=== PATIENT | male | born 1940 | race Caucasian/White ===

== ENCOUNTER → 2019-12-20 | Outpatient (CLI) | payer MEDICARE ==
[~2019-12-20] MED LIST: ACET325C6 PO; ALPR0.5T6 PO; APIX5TAB PO; ATOR40TA78 PO; CHOL2000 PO; CLON-364 PO; CYAN2000 PO; DRON400T PO; DUTA1CPM PO; LOSA50TA14 PO; SOTA80TA PO; TRAM50TA2 PO; VALS320T2 PO; [UNRECOGNIZED DRUG - OTHER] PO
[2019-12-20 15:35] LABS: BASOPHILS # (AUTO) 0.03 x10^3/uL (0-0.1); BASOPHILS % (AUTO) 0 % (0-1); EOSINOPHILS # (AUTO) 0.24 x10^3/uL (0-0.4); EOSINOPHILS % (AUTO) 3 % (1-7); LYMPHOCYTES # (AUTO) 1.22 x10^3/uL (1-3.4); LYMPHOCYTES % (AUTO) 15 % (22-44); MD NO; MEAN CORPUSCULAR HEMOGLOBIN 33.3 pg (27.5-34.5); MEAN CORPUSCULAR HGB CONC 34.4 g/dL (33.2-36.2); MEAN CORPUSCULAR VOLUME 96.7 fL (81-97); MEAN PLATELET VOLUME 8.5 fL (7.4-10.4); MONOCYTES # (AUTO) 0.75 x10^3/uL (0.2-0.8); MONOCYTES % (AUTO) 10 % (2-9); NEUTROPHILS # (AUTO) 5.67 x10^3/uL (1.8-6.8); NEUTROPHILS % (AUTO) 72 % (42-75); PLATELET COUNT 216 x10^3/uL (130-400); RED BLOOD COUNT 4.82 x10^6/uL (4.38-5.82); RED CELL DISTRIBUTION WIDTH 13.9 % (9.4-14.8)
[2019-12-20 15:41] LABS: INTERNATIONAL NORMALIZED RATIO 1.01 (0.93-1.1); PROTHROMBIN TIME 10.7 Seconds (9.6-11.5)
[2019-12-20 15:43] LABS: ALANINE AMINOTRANSFERASE 29 U/L (12-78); ALBUMIN 4.4 g/dL (3.4-5.0); ANION GAP 5 mmol/L (5-15); CALCIUM 9.3 mg/dL (8.5-10.1); CHLORIDE 108 mmol/L (98-107); CREATININE 0.86 mg/dL (0.7-1.3)
[2019-12-20 15:45] LABS: ALKALINE PHOSPHATASE 83 U/L (45-117); BILIRUBIN,TOTAL 1.6 mg/dL (0.2-1.0); TOTAL PROTEIN 7.3 g/dL (6.4-8.2)
[2019-12-20 15:48] LABS: MICROSCOPIC AUTO
[2019-12-20 15:50] LABS: CULTURE INDICATED? YES
== END | disposition home or self-care (01) ==
LOC: STAR 14:31
PROVIDERS: ATTEND Neurological Surgery
DX: Z01.811 Encounter for preprocedural respiratory examination (principal); Z01.812 Encounter for preprocedural laboratory examination; Z01.810 Encounter for preprocedural cardiovascular examination; M47.817 Spondylosis without myelopathy or radiculopathy, lumbosacral region; R79.1 Abnormal coagulation profile; R94.31 Abnormal electrocardiogram [ECG] [EKG]; R82.90 Unspecified abnormal findings in urine; R00.1 Bradycardia, unspecified
CPT/HCPCS: 36415; 71046; 72110; 80053; 81001; 85025; 85610; 85730; 87086; 93005

== ENCOUNTER 2019-12-29 15:25 | Observation (INO) | payer MEDICARE ==
[2019-12-29] VITALS (7 sets, daily range): BP systolic 167–224; BP diastolic 69–83
[~2019-12-29] VITALS: Ht 185.4 cm; Wt 92.5 kg
[~2019-12-29 15:25] MED LIST changes: +BACITRACIN 50,000 UNIT ONE; +BUPIVACAINE 0.25% ONE; +BUPIVACAINE/PF-EPI 0.5% 1:200K ONE; +VANCOMYCIN 1,000 MG ONE
[2019-12-29] MEDS ORDERED: FENTANYL PF 250 MCG/5ML ONE (16:26)
[2019-12-29] MEDS ORDERED: ACETAMINOPHEN 500 MG TABLET ONE (16:38)
[2019-12-29] MEDS ORDERED: GABAPENTIN 300 MG CAPSULE ONE (16:38)
[2019-12-29] MEDS ORDERED: hydrALAzine 20 MG/ML, 1ML ONE (18:15)
[2019-12-29] MEDS ORDERED: hydrALAzine 20 MG/ML, 1ML IV ONE ×2 (18:30→19:00)
[2019-12-29 19:12] LABS: BASOPHILS # (AUTO) 0.02 x10^3/uL (0-0.1); BASOPHILS % (AUTO) 0 % (0-1); EOSINOPHILS # (AUTO) 0.26 x10^3/uL (0-0.4); EOSINOPHILS % (AUTO) 4 % (1-7); LYMPHOCYTES # (AUTO) 1.16 x10^3/uL (1-3.4); LYMPHOCYTES % (AUTO) 18 % (22-44); MD NO; MEAN CORPUSCULAR HEMOGLOBIN 32.9 pg (27.5-34.5); MEAN CORPUSCULAR HGB CONC 33.9 g/dL (33.2-36.2); MEAN CORPUSCULAR VOLUME 97.1 fL (81-97); MEAN PLATELET VOLUME 8.2 fL (7.4-10.4); MONOCYTES # (AUTO) 0.67 x10^3/uL (0.2-0.8); MONOCYTES % (AUTO) 10 % (2-9); NEUTROPHILS # (AUTO) 4.37 x10^3/uL (1.8-6.8); NEUTROPHILS % (AUTO) 68 % (42-75); PLATELET COUNT 184 x10^3/uL (130-400); RED CELL DISTRIBUTION WIDTH 13.6 % (9.4-14.8)
[2019-12-29 19:25] LABS: ALANINE AMINOTRANSFERASE 22 U/L (12-78); ALBUMIN 3.6 g/dL (3.4-5.0); ANION GAP 5 mmol/L (5-15); CALCIUM 8.7 mg/dL (8.5-10.1); CHLORIDE 109 mmol/L (98-107); CREATININE 0.63 mg/dL (0.7-1.3)
[2019-12-29 19:29] LABS: ALKALINE PHOSPHATASE 70 U/L (45-117); BILIRUBIN,TOTAL 1.6 mg/dL (0.2-1.0); TOTAL PROTEIN 6.3 g/dL (6.4-8.2); TROPONIN I < 0.015 ng/mL (0.000-0.045)
[2019-12-29] MEDS ORDERED: LIDODERM 5% PATCH TD PRN (20:00)
[2019-12-29] MEDS ORDERED: DOCUSATE 100 MG CAPSULE PO PRN (20:00)
[2019-12-29] MEDS ORDERED: ACET-76 PO (20:21)
[2019-12-29] MEDS ORDERED: ENALAPRILAT 1.25 MG/ML, 1ML ONE (21:17)
[2019-12-29] MEDS: ENALAPRILAT 1.25 MG/ML, 2ML IVPush PRN (21:20)
[2019-12-29] MEDS: APIXABAN 5 MG TABLET PO SCH (21:22)
[2019-12-29] MEDS: ATORVASTATIN 40 MG TABLET PO SCH (21:22)
[2019-12-30] VITALS (9 sets, daily range): BP systolic 140–198; BP diastolic 64–76
[2019-12-30 01:07] LABS: TROPONIN I < 0.015 ng/mL (0.000-0.045)
[2019-12-30 07:47] LABS: TROPONIN I < 0.015 ng/mL (0.000-0.045)
[2019-12-30] MEDS: ACETAMINOPHEN 325 MG TABLET PO SCH (08:48)
[2019-12-30] MEDS: LOSARTAN 50MG TABLET PO SCH (08:49)
[2019-12-30] MEDS: LIDODERM REMOVE PATCH NOTE XX SCH ×2 (08:49→20:10)
[2019-12-30] MEDS: APIXABAN 5 MG TABLET PO SCH ×2 (08:49→20:09)
[2019-12-30] MEDS: hydrALAzine 20 MG/ML, 1ML IVPush PRN ×2 (08:52→20:54)
[2019-12-30] MEDS ORDERED: SOTALOL 80MG TABLET PO SCH (10:30)
[2019-12-30] MEDS ORDERED: POLYETHYLENE GLYCOL 17 GM PACKET PO ONE (10:30)
[2019-12-30] MEDS: AMLODIPINE 5 MG TABLET PO SCH (11:19)
[2019-12-30] MEDS: SOTALOL 80MG TABLET PO SCH ×2 (11:20→20:09)
[2019-12-30] MEDS: DOCUSATE 50 MG/5 ML, 10ML UDC PO PRN ×2 (11:21→20:09)
[2019-12-30] MEDS: ENALAPRILAT 1.25 MG/ML, 2ML IVPush PRN ×2 (15:50→16:17)
[2019-12-30] MEDS: ATORVASTATIN 40 MG TABLET PO SCH (20:08)
[2019-12-31 03:22] VITALS: BP 169/70
[2019-12-31 05:16] LABS: BASOPHILS # (AUTO) 0.02 x10^3/uL (0-0.1); BASOPHILS % (AUTO) 0 % (0-1); EOSINOPHILS # (AUTO) 0.24 x10^3/uL (0-0.4); EOSINOPHILS % (AUTO) 3 % (1-7); LYMPHOCYTES # (AUTO) 1.25 x10^3/uL (1-3.4); LYMPHOCYTES % (AUTO) 16 % (22-44); MD NO; MEAN CORPUSCULAR HGB CONC 33.8 g/dL (33.2-36.2); MEAN CORPUSCULAR VOLUME 97.8 fL (81-97); MEAN PLATELET VOLUME 8.9 fL (7.4-10.4); MONOCYTES # (AUTO) 0.79 x10^3/uL (0.2-0.8); MONOCYTES % (AUTO) 10 % (2-9); NEUTROPHILS # (AUTO) 5.54 x10^3/uL (1.8-6.8); NEUTROPHILS % (AUTO) 71 % (42-75); PLATELET COUNT 182 x10^3/uL (130-400); RED CELL DISTRIBUTION WIDTH 14.2 % (9.4-14.8)
[2019-12-31 05:17] LABS: ALBUMIN 3.4 g/dL (3.4-5.0); ANION GAP 6 mmol/L (5-15); CALCIUM 8.7 mg/dL (8.5-10.1); CHLORIDE 110 mmol/L (98-107)
[2019-12-31 05:21] LABS: ALANINE AMINOTRANSFERASE 20 U/L (12-78); ALKALINE PHOSPHATASE 65 U/L (45-117); BILIRUBIN,TOTAL 1.3 mg/dL (0.2-1.0); CREATININE 0.69 mg/dL (0.7-1.3); TOTAL PROTEIN 6.1 g/dL (6.4-8.2)
[2019-12-31 08:07] VITALS: BP 183/70
[2019-12-31] MEDS ORDERED: HYDROCHLOROTHIAZIDE 25 MG TABLET PO SCH (09:00)
[2019-12-31] MEDS: AMLODIPINE 5 MG TABLET PO SCH (09:00)
[2019-12-31] MEDS ORDERED: CYANOCOBALAMIN 1,000 MCG/ML, 1ML IM ONE (09:00)
[2019-12-31] MEDS ORDERED: AMLODIPINE 10 MG TAB ONE (09:12)
[2019-12-31] MEDS ORDERED: AMLODIPINE 10 MG TAB PO SCH (09:15)
[2019-12-31] MEDS: SOTALOL 80MG TABLET PO SCH (09:17)
[2019-12-31] MEDS: ACETAMINOPHEN 325 MG TABLET PO SCH (09:17)
[2019-12-31] MEDS: APIXABAN 5 MG TABLET PO SCH (09:18)
[2019-12-31] MEDS: LOSARTAN 50MG TABLET PO SCH (09:18)
[2019-12-31] MEDS ORDERED: LIDO700A20 TD (09:26)
[2019-12-31] MEDS ORDERED: HYDR25TA6 PO (09:26)
[2019-12-31] MEDS ORDERED: AMLO10TA8 PO (09:26)
[2019-12-31] MEDS ORDERED: CYAN100028 PO (10:00)
[2019-12-31 10:58] VITALS: BP 180/68
[2019-12-31 11:01] VITALS: BP 175/79
[2019-12-31 11:21] VITALS: BP 169/72
== END 2019-12-31 12:45 | disposition home or self-care (01) ==
LOC: OR 15:25 → 4NE 16:37 → OR 18:48 → 4NE 18:48 → 5SO 20:10 → DCLOUNGE 12-31 12:40
PROVIDERS: ADMIT Neurological Surgery; ATTEND Neurological Surgery
DX: I16.0 Hypertensive urgency (principal); I10 Essential (primary) hypertension; R94.31 Abnormal electrocardiogram [ECG] [EKG]; M48.061 Spinal stenosis, lumbar region without neurogenic claudication; I48.0 Paroxysmal atrial fibrillation; I73.9 Peripheral vascular disease, unspecified; E78.5 Hyperlipidemia, unspecified; F41.9 Anxiety disorder, unspecified; R00.1 Bradycardia, unspecified; D68.59 Other primary thrombophilia; I65.29 Occlusion and stenosis of unspecified carotid artery; Z53.9 Procedure and treatment not carried out, unspecified reason; I35.8 Other nonrheumatic aortic valve disorders; I07.1 Rheumatic tricuspid insufficiency; Z87.891 Personal history of nicotine dependence
CPT/HCPCS: 36415; 80053; 82607; 84484; 85025; 93005; 93306; 96372; 96374; 96375; 96376; G0378; J0360; J3010; J3420; J3370; J3490